=== PATIENT | female | born 1965 | race Caucasian/White ===

== ENCOUNTER 2022-06-28 13:17 | Emergency (ER) | payer OTHER, MEDICAID, SELFPAY ==
[2022-06-28 13:25] VITALS: BP 114/55; PULSE 68; RESP 18; TEMP 36.2; O2SAT 94; BMI 37.2
--- NOTE | 2022-06-28 13:58 | DI.CT.S_ITS ---
PROCEDURE: CT HEAD/BRAIN WO CON INDICATIONS: headache for 2 weeks TECHNIQUE: Noncontrast 4.5 mm thick angled axial sections acquired from the foramen magnum to the vertex, with coronal and sagittal reformats. For radiation dose reduction, the following was used: automated exposure control, adjustment of mA and/or kV according to patient size. COMPARISON: None. FINDINGS: Image quality: Excellent. CSF spaces: Basal cisterns are patent. No extra-axial fluid collections. Ventricles are normal in size and shape. Brain: No midline shift. No intracranial masses or hemorrhage. Lay-white matter interface is normal. Skull and face: Calvarium and visualized facial bones are intact, without suspicious lesions. Sinuses: Visualized sinuses and mastoids are clear. IMPRESSION: 1. No acute intracranial abnormalities. Dictated by: Michelle Johnson M.D. on 06/28/2022 at 14:32 Approved by: Michelle Johnson M.D. on 06/28/2022 at 14:33
--- NOTE | 2022-06-28 13:58 | DI.RAD.S_ITS ---
PROCEDURE: XR CHEST 1V INDICATIONS: Shortness of bretheath TECHNIQUE: One view of the chest was acquired. COMPARISON: None. FINDINGS: Surgical changes and devices: None. Lungs and pleura: Lungs are clear. No pleural effusions or pneumothorax. Mediastinum: Mediastinal contours appear normal. Heart size is normal. Bones and chest wall: No suspicious bony lesions. Overlying soft tissues appear unremarkable. IMPRESSION: No acute cardiopulmonary abnormality. Dictated by: Devin Adams M.D. on 06/28/2022 at 14:41 Approved by: Devin Adams M.D. on 06/28/2022 at 14:42
--- NOTE | 2022-06-28 14:03 | ED.HA ---
HPI - Headache General Chief Complaint: Upper Respiratory Symptoms Stated Complaint: SOB,Headache,Congestion Time Seen by Provider: 06/28/22 13:36 Mode of arrival: Family Vehicle History of Present Illness HPI Narrative: Patient is a 56-year-old female history of type 2 diabetes anxiety presenting today other id of complaints. Says is though she has had some right-sided chest discomfort and shortness of breath for about 6 months. Ms. Today she is presenting with an ongoing headache which is slightly worse than normal. She complains of orthopnea but not necessarily a dyspnea with exertion. She has some mild right-sided discomfort. She denies any nausea or vomiting. She has not traveled anywhere. She does not have any fever or productive cough. Her breathing today is not any worse than normal. She has had slight headache ongoing since June 14. She has taken some Excedrin for it and has not really worked. She feels like the headache is behind her right eye she denies any visual changes no numbness tingling or weakness. She is sensitive to light. She has some mild neck pain but seems to easily be moving her neck. Related Data Home Medications Medication Instructions Recorded Confirmed metformin 500 mg tablet,extended 500 mg PO DAILY 06/28/22 06/28/22 release 24 hr sertraline 50 mg tablet 100 mg PO DAILY 06/28/22 06/28/22 Allergies Allergy/AdvReac Type Severity Reaction Status Date / Time erythromycin base Allergy Verified 06/28/22 13:47 Penicillins Allergy Verified 06/28/22 13:47 Review of Systems Review of Systems Narrative: GENERAL: Denies chills, fatigue, malaise, fever, sweats, travel HEENT: Denies sinus pain, ear pain, sore throat, difficulty swallowing, neck pain RESPIRATORY: See HPI CARDIOVASCULAR: Denies chest pain, palpitations, orthopnea, edema GASTROINTESTINAL: Denies nausea, vomiting, abdominal pain, diarrhea, constipation, melena. : Denies dysuria, frequency, incontinence, hematuria, urinary retention, flank pain. MUSCULOSKELETAL: Denies weakness, joint pain, or bony pain SKIN: No rash, no erythema, no pruritus NEUROLOGIC: + headache PSYCHIATRIC: No concerning psychosocial issues. 12 point review of systems is negative except for those stated above and HPI Patient History Social History Smoking Status: Current every day smoker Smoking Status: Current every day smoker tobacco type: cigarettes and vaping alcohol intake frequency: 0-2 drinks per day Substance Use Type: does not use Exam Initial Vital Signs Initial Vital Signs: Vital Signs Temperature 97.2 F L 06/28/22 13:25 Pulse Rate 68 06/28/22 13:25 Respiratory Rate 18 06/28/22 13:25 Blood Pressure 114/55 L 06/28/22 13:25 Pulse Oximetry 94 06/28/22 13:25 Oxygen Delivery Method 06/28/22 13:25 GENERAL: Alert pleasant 56-year-old female no acute distress yesterday yellow or before HEENT: Head atraumatic,EOMI, pupils reactive, face symmetric, moist mucous membranes, without meningeal CARDIOVASCULAR: Regular rate and rhythm without murmurs, rubs or gallops. RESPIRATORY: Breath sounds equal bilaterally, no wheezes rales or rhonchi. ABDOMEN: Soft, nontender. Normoactive bowel sounds all 4 quadrants. No guarding or rebound. No right upper quadrant pain, negative Doyle EXTREMITIES: Normal range of motion, no clubbing or edema. Neurovascularly intact NEUROLOGICAL: Alert and oriented x4.Normal gait and speech. Cranial nerves II through XII grossly intact. Good [id number], good [id number], strength equal bilaterally, no dysarthria or aphasia, sensation in tact to soft touch bilaterally, no visual changes, no facial droop SKIN: Warm, dry, no laceration, no petechiae, no rashes or lesions. Course Orders Ordered: ED Orders 06/28/22 13:33 COVID19 -Nasal RAPID/Pre-Proc Stat 06/28/22 13:50 Complete Blood Count AUTO DIFF Stat Comprehensive Metabolic Panel Stat D Dimer Stat Lipase Stat NT-proBNP (BNP-Adult 18+) Stat Troponin & CK Cardiac Panel Stat 06/28/22 13:58 CT head/brain wo con Stat XR chest 1V Stat 06/28/22 14:09 EKG-12 Lead Stat 06/28/22 15:33 US abdomen limited Stat Discontinued Medications Ketorolac Tromethamine (Ketorolac 30 Mg/Ml Vial) 15 mg IV NOW ONE Stop: 06/28/22 13:59 Last Admin: 06/28/22 14:40 Dose: 15 mg Documented By: SOLO Vital Signs Vital signs: Vital Signs - 8 hr 06/28/22 13:25 08/12/22 14:38 06/28/22 15:00 Temperature 97.2 F L Pulse Rate 68 63 61 Respiratory Rate 18 Blood Pressure 114/55 L Pulse Oximetry 94 94 92 Oxygen Delivery Method Room Air 06/28/22 15:30 06/28/22 16:00 06/28/22 16:30 Temperature Pulse Rate 63 59 L 58 L Respiratory Rate Blood Pressure Pulse Oximetry 91 92 91 Oxygen Delivery Method MDM - Headache Lab Data Result diagrams: 06/28/22 13:50 06/28/22 13:50 Labs: Lab Results 06/28/22 06/28/22 06/28/22 Range/Units 13:33 13:50 13:50 WBC 7.9 (4.5-11.0) X10^3/uL RBC 5.07 (4.0-5.2) X10^6/uL Hgb 14.8 (12.0-16.0) g/dL Hct 42.1 (36-46) % MCV 83.0 (80-100) fL MCH 29.2 (26-34) PG MCHC 35.1 (30-36) % RDW 13.9 (11.6-14.8) % Plt Count 180 (150-400) X10^3/uL Neut % (Auto) 49.8 L (50-75) % Lymph % (Auto) 34.8 (25-40) % Denali % (Auto) 6.3 (3-14) % Eos % (Auto) 8.2 H (2-4) % Baso % (Auto) 0.9 (0-2) % Neut # (Auto) 3900 (0130-9173) /uL Lymph # (Auto) 2700 (2310-9237) /uL Denali # (Auto) 500 (0-900) /uL Eos # (Auto) 700 H (0-450) /uL Baso # (Auto) 100 (0-100) /uL D-Dimer < 500 (<500) ng/ml Sodium (137-145) mmol/L Potassium (3.4-5.1) mmol/L Chloride (98-107) mmol/L Carbon Dioxide (22-32) mmol/L BUN (7-17) mg/dL Creatinine (0.52-1.04) mg/dL Estimated GFR (>60) mL/min BUN/Creatinine Ratio (6-22) Glucose (70-100) mg/dL Calcium (8.4-10.2) mg/dL Total Bilirubin (0.2-1.3) mg/dL AST (14-36) IU/L ALT (<35) IU/L Alkaline Phosphatase (38-126) U/L Total Creatine Kinase (30-135) U/L CK-MB (CK-2) CK-MB (CK-2) Rel Index Troponin I (0.01-0.034) ng/mL NT-Pro-B Natriuret Pep (<125) pg/mL Total Protein (6.3-8.2) g/dL Albumin (3.5-5.0) g/dL Globulin (1.7-4.1) g/dL Albumin/Globulin Ratio (1.0-2.8) Lipase (23-300) U/L SARS-CoV-2 (PCR) Negative (Negative) 06/28/22 Range/Units 13:50 WBC (4.5-11.0) X10^3/uL RBC (4.0-5.2) X10^6/uL Hgb (12.0-16.0) g/dL Hct (36-46) % MCV (80-100) fL MCH (26-34) PG MCHC (30-36) % RDW (11.6-14.8) % Plt Count (150-400) X10^3/uL Neut % (Auto) (50-75) % Lymph % (Auto) (25-40) % Denali % (Auto) (3-14) % Eos % (Auto) (2-4) % Baso % (Auto) (0-2) % Neut # (Auto) (2710-0415) /uL Lymph # (Auto) (1709-7928) /uL Denali # (Auto) (0-900) /uL Eos # (Auto) (0-450) /uL Baso # (Auto) (0-100) /uL D-Dimer (<500) ng/ml Sodium 140 (137-145) mmol/L Potassium 4.3 (3.4-5.1) mmol/L Chloride 104 (98-107) mmol/L Carbon Dioxide 28 (22-32) mmol/L BUN 9 (7-17) mg/dL Creatinine 0.65 (0.52-1.04) mg/dL Estimated GFR > 60 (>60) mL/min BUN/Creatinine Ratio 13.8 (6-22) Glucose 101 H (70-100) mg/dL Calcium 9.7 (8.4-10.2) mg/dL Total Bilirubin 0.6 (0.2-1.3) mg/dL AST 25 (14-36) IU/L ALT 31 (<35) IU/L Alkaline Phosphatase 75 (38-126) U/L Total Creatine Kinase 42 (30-135) U/L CK-MB (CK-2) TNP CK-MB (CK-2) Rel Index TNP Troponin I < 0.012 (0.01-0.034) ng/mL NT-Pro-B Natriuret Pep 33 (<125) pg/mL Total Protein 7.7 (6.3-8.2) g/dL Albumin 4.6 (3.5-5.0) g/dL Globulin 3.1 (1.7-4.1) g/dL Albumin/Globulin Ratio 1.5 (1.0-2.8) Lipase 970 H (23-300) U/L SARS-CoV-2 (PCR) (Negative) Imaging Data CT scan - head: Radiologist's Impression: ZUHAIR Olivo [id number] CT Scan Report Signed Patient: Laura Rea MR#: [id number] : 1965 Acct:[id number] Age/Sex: 56 / F Date of Service: 06/28/22 Loc: ED Accession Number: [id number] ?? Procedure: CT head/brain wo con Ordering Provider: Liliana Mercado D.O. PROCEDURE:? CT HEAD/BRAIN WO CON ? INDICATIONS:? headache for 2 weeks ? TECHNIQUE:? Noncontrast 4.5 mm thick angled axial sections acquired from the foramen magnum to the vertex, with coronal and sagittal reformats.? For radiation dose reduction, the following was used:? automated exposure control, adjustment of mA and/or kV according to patient size.? ? COMPARISON:? None. ? FINDINGS:? Image quality:? Excellent.? ? CSF spaces:? Basal cisterns are patent.? No extra-axial fluid collections.? Ventricles are normal in size and shape.? ? Brain:? No midline shift.? No intracranial masses or hemorrhage.? Lay-white matter interface is normal.? ? Skull and face:? Calvarium and visualized facial bones are intact, without suspicious lesions.? ? Sinuses:? Visualized sinuses and mastoids are clear.? ? IMPRESSION:? ? 1. No acute intracranial abnormalities. ? ? ? Dictated by: Michelle Johnson M.D. on 06/28/2022 at 14:32 ? ? Chest x-ray: Radiologist's Impression: ZUHAIR Olivo [id number] XRay Report Signed Patient: Laura Rea MR#: [id number] : 1965 Acct:[id number] Age/Sex: 56 / F Date of Service: 06/28/22 Loc: ED Accession Number: [id number] ?? Procedure: XR chest 1V Ordering Provider: Liliana Mercado D.O. PROCEDURE:? XR CHEST 1V ? INDICATIONS:? Shortness of bretheath ? TECHNIQUE:? One view of the chest was acquired.? ? COMPARISON:? None. ? FINDINGS:? ? Surgical changes and devices:? None.? ? Lungs and pleura:? Lungs are clear.? No pleural effusions or pneumothorax.? ? Mediastinum:? Mediastinal contours appear normal.? Heart size is normal.? ? Bones and chest wall:? No suspicious bony lesions.? Overlying soft tissues appear unremarkable.? ? IMPRESSION:? No acute cardiopulmonary abnormality. ? ? ? Dictated by: Devin Adams M.D. on 06/28/2022 at 14:41 ?? US - abdomen: Radiologist's Impression: ZUHAIR Olivo [id number] Ultrasound Report Signed Patient: Laura Rea MR#: [id number] : 1965 Acct:[id number] Age/Sex: 56 / F Date of Service: 06/28/22 Loc: ED Accession Number: [id number] ?? Procedure: US abdomen limited Ordering Provider: Liliana Mercado D.O. PROCEDURE: US ABDOMEN LIMITED ? INDICATIONS:? ruq ? TECHNIQUE:? Real-time focused scanning was performed of the abdomen, with image documentation.? ? COMPARISON:? None. ? FINDINGS:? The liver demonstrates enlarged size. The liver demonstrates generalized moderately increased echogenicity. This decreases ultrasound sensitivity for detection of hepatic masses.? ? Cyst the gallbladder is contracted, which limits its evaluation.? There is an apparent large gallstone (versus multiple gallstones filling the gallbladder lumen) seen within the gallbladder. No findings of gallstones or sludge are seen.? The gallbladder wall is not thickened, measuring 3 mm or less.? No specific pericholecystic fluid is seen.? The sonographic Doyle sign is negative. ? There is no biliary dilatation, the common bile duct measures 5-6 mm.? ? No significant pancreatic abnormality is seen on these images.? IMPRESSION:? A single large gallstone (versus multiple gallstones filling the gallbladder lumen) can be seen, yet without additional sonographic signs of cholecystitis.? Negative for biliary dilatation.? Please correlate with physical examination findings, patient presentation, and laboratory values.? ? The liver demonstrates increased echogenicity.? This finding is nonspecific, yet it is most commonly attributed to fatty infiltration.? Dictated by: León Guerra M.D. on 06/28/2022 at 15:29? ECG Data Interpretation: Low voltage normal sinus rhythm rate 60 PR174 QRS76 [id number] T-wave inversion noted in V2 in V1 no ST elevations no priors to compare MDM Narrative Medical decision making narrative: Patient has had multiple on going his problems. Presenting today with worsening headache. She has no focal deficits. Head CT is negative. She has no meningeal signs. Blood work is overall reassuring. His also had chronic ongoing shortness of breath all worse at night. Both she department complaining wheezing at nighttime. Currently there is no wheezing or respiratory distress. D-dimer is negative BNP is also negative. His chest x-ray does not show any abnormality. Unclear cause of wheezing that is not present at this time and has been ongoing for 6 months. His recommend outpatient follow-up. She has been having some mild right upper quadrant pain and refer right shoulder pain. Ultrasound does show 1 large stone. Normal bilirubin normal LFTs. At this time no sign of acute cholecystitis. I do recommend she have close outpatient follow-up regards to gallstone. She will electively need to have surgery. Discharge Plan Departure Patient Disposition: Home Clinical Impression: Headache, Cholelithiasis Instructions: DI for Gallstones, DI for Headache Activity Restrictions/Additional Instructions: *You have been diagnosed with headache, gallstone *What to do: Your found to have 1 large gallstone. At this time it is likely causing her right upper quadrant pain and shoulder pain. You may require surgery for your gallbladder. Please follow-up with general surgery. There is no explanation for your shortness of breath. However encourage you to follow-up with your PCP. Your lipase is also noted to be slightly elevated likely related to your gallbladder *Continue to take medications as directed *Follow up with your primary care provider in 2-3 days or call [phone] *Return to ER if you should have increasing shortness of breath, increasing pain persistent vomiting or any new, worsening or concerning symptoms Prescriptions: No Action metformin 500 mg tablet extended release 24 hr 500 mg PO DAILY sertraline 50 mg tablet 100 mg PO DAILY Referrals: [facility] [Provider Group] Miscellaneous,Doctor, [Primary Care Provider] - Visit Report Forms: Patient Portal/API
[2022-06-28 14:10] LABS: Add Manual Diff / Slide Review NO; Basophils Absolute Auto 100 /uL (0-100); Basophils Percent Auto 0.9 % (0-2); Eosinophils Absolute Auto 700 /uL (0-450); Eosinophils Percent Auto 8.2 % (2-4); Hematocrit 42.1 % (36-46); Hemoglobin 14.8 g/dL (12.0-16.0); Lymphocytes Absolute Auto 2700 /uL (1100-4500); Lymphocytes Percent Auto 34.8 % (25-40); Mean Corpuscular HGB Conc 35.1 % (30-36); Mean Corpuscular Hemoglobin 29.2 PG (26-34); Monocytes Absolute Auto 500 /uL (0-900); Monocytes Percent Auto 6.3 % (3-14); Neutrophils Absolute Auto 3900 /uL (1500-7000); Neutrophils Percent Auto 49.8 % (50-75); Platelet Count 180 X10^3/uL (150-400); Red Blood Cell Count 5.07 X10^6/uL (4.0-5.2); Red Cell Distribution Width 13.9 % (11.6-14.8); White Blood Cell Count 7.9 X10^3/uL (4.5-11.0)
[2022-06-28 14:17] LABS: D Dimer < 500 ng/ml (<500)
[2022-06-28 14:24] LABS: COVID19 -Nasal RAPID Negative (Negative)
[2022-06-28 14:38] VITALS: PULSE 63; O2SAT 94
[2022-06-28] MEDS: KETOROLAC 30 MG/ML VIAL 15 MG IV (14:40)
[2022-06-28 15:00] VITALS: PULSE 61; O2SAT 92
[2022-06-28 15:21] LABS: Alanine Aminotransferase 31 IU/L (<35); Albumin 4.6 g/dL (3.5-5.0); Albumin Globulin Ratio 1.5 (1.0-2.8); Alkaline Phosphatase 75 U/L (38-126); Aspartate Aminotransferase 25 IU/L (14-36); BUN Creatinine Ratio 13.8 (6-22); Bilirubin Total 0.6 mg/dL (0.2-1.3); Blood Urea Nitrogen 9 mg/dL (7-17); Calcium 9.7 mg/dL (8.4-10.2); Carbon Dioxide 28 mmol/L (22-32); Chloride 104 mmol/L (98-107); Creatine Kinase 42 U/L (30-135); Estimated Glomerular Filt Rate > 60 mL/min (>60); Globulin 3.1 g/dL (1.7-4.1); Glucose 101 mg/dL (70-100); HEMOLYSIS < 15 (0-50); Lipase 970 U/L (23-300); Potassium 4.3 mmol/L (3.4-5.1); Sodium 140 mmol/L (137-145); Total Protein 7.7 g/dL (6.3-8.2)
[2022-06-28 15:30] VITALS: PULSE 63; O2SAT 91
[2022-06-28 15:33] LABS: NT-proBNP (BNP-Adult 18+) 33 pg/mL (<125); Troponin I < 0.012 ng/mL (0.01-0.034)
--- NOTE | 2022-06-28 15:33 | DI.US.S_ITS ---
PROCEDURE: US ABDOMEN LIMITED INDICATIONS: ruq TECHNIQUE: Real-time focused scanning was performed of the abdomen, with image documentation. COMPARISON: None. FINDINGS: The liver demonstrates enlarged size. The liver demonstrates generalized moderately increased echogenicity. This decreases ultrasound sensitivity for detection of hepatic masses. Cyst the gallbladder is contracted, which limits its evaluation. There is an apparent large gallstone (versus multiple gallstones filling the gallbladder lumen) seen within the gallbladder. No findings of gallstones or sludge are seen. The gallbladder wall is not thickened, measuring 3 mm or less. No specific pericholecystic fluid is seen. The sonographic Doyle sign is negative. There is no biliary dilatation, the common bile duct measures 5-6 mm. No significant pancreatic abnormality is seen on these images. IMPRESSION: A single large gallstone (versus multiple gallstones filling the gallbladder lumen) can be seen, yet without additional sonographic signs of cholecystitis. Negative for biliary dilatation. Please correlate with physical examination findings, patient presentation, and laboratory values. The liver demonstrates increased echogenicity. This finding is nonspecific, yet it is most commonly attributed to fatty infiltration. Dictated by: León Guerra M.D. on 06/28/2022 at 15:29 Approved by: León Guerra M.D. on 06/28/2022 at 15:30
[2022-06-28 16:00] VITALS: PULSE 59; O2SAT 92
[2022-06-28 16:30] VITALS: PULSE 58; O2SAT 91
== END 2022-06-28 17:05 | disposition home or self-care (01) ==
PROVIDERS: Emergency Provider Emergency Medicine
DX: R51.9 Headache, unspecified (principal); K80.20 Calculus of gallbladder without cholecystitis without obstruction; R10.11 Right upper quadrant pain; R06.02 Shortness of breath; Z20.822 Contact with and (suspected) exposure to COVID-19
CPT/HCPCS: 36415; 70450; 71045; 76705; 80053; 82550; 83690; 83880; 84484; 85025; 85379; 87635; 93005; 93010; 96374; 99284; C9803; J1885

== ENCOUNTER → 2024-07-01 11:05 | Outpatient (CLI) | payer OTHER, SELFPAY ==
--- NOTE | 2024-07-01 11:07 | DI.CT.S_ITS ---
PROCEDURE: CT ABDOMEN PELVIS W CON INDICATIONS: ABDOMINAL PAIN TECHNIQUE: After the administration of intravenous contrast, axial sections acquired from the lung bases to the pubic symphysis. Coronal and sagittal reformats were performed. For radiation dose reduction, the following was used: automated exposure control, adjustment of mA and/or kV according to patient size. COMPARISON: None. FINDINGS: Image quality: Diagnostic. Lower Chest: No significant findings. ABDOMEN: Liver: No solid mass. There is hepatic steatosis. Gallbladder: There is a 2.5 x 1.3 cm gallstone within the gallbladder that fills up the entirety of the gallbladder. Biliary ducts: There is a stone within the common bile duct that measures approximately 0.5 cm. Pancreas: No ductal dilation. Spleen: Mild splenomegaly. Adrenal Glands: No adrenal nodules. Kidneys and Ureters: No hydronephrosis. No solid mass. No complex renal cystic lesion which requires follow up. Stomach and Bowel: No small bowel obstruction. Small hiatal hernia. The ascending colon is mildly dilated (4 cm) relative to the transverse colon and descending colon. Peritoneum: No abnormal intraperitoneal fluid. No free air. Ventral Wall: There is a 3.2 cm ventral hernia just right of midline that contains the proximal transverse colon. Abdominal Nodes: No retroperitoneal or mesenteric adenopathy by size criteria. Vessels: Aorta and inferior vena cava are normal in size. PELVIS: Pelvic Organs: The uterus is present. There are 2 sub 2 cm cystic foci within the right adnexal region. Bladder: No bladder wall thickening, accounting for underdistention. Pelvic Nodes: No enlarged lymph nodes. Miscellaneous: No inguinal hernias are seen. Bones: No destructive osseous pathology. IMPRESSION: 1. Within the upper abdomen, right of midline, there is a 4 cm ventral hernia that contains the proximal transverse colon. There is mild dilation of the ascending colon in relation to the transverse colon and descending colon. This may suggest a partial obstruction. 2. There is a large gallstone that occupies the entirety of the gallbladder. Additionally, there is a 0.5 cm stone within the common bile duct. An ERCP or HIDA scan can be performed to assess for obstruction. 3. There is hepatic steatosis. 4. Nonspecific mild splenomegaly. 5. There are 2 sub 2 cm foci within the right adnexa which are felt to correspond to ovarian cysts. If there is clinical concern for pelvic pathology, an ultrasound can be obtained for further characterization. Dictated by: Walter Christopher M.D. on 07/02/2024 at 15:31 Approved by: Walter Christopher M.D. on 07/02/2024 at 16:07
== END ==
LOC: CT 11:06
DX: K80.70 Calculus of gallbladder and bile duct without cholecystitis without obstruction (principal); R10.9 Unspecified abdominal pain; K76.0 Fatty (change of) liver, not elsewhere classified; R16.1 Splenomegaly, not elsewhere classified; K44.9 Diaphragmatic hernia without obstruction or gangrene; K43.9 Ventral hernia without obstruction or gangrene; Z85.068 Personal history of other malignant neoplasm of small intestine
CPT/HCPCS: 74177; Q9967

== ENCOUNTER 2024-08-18 11:57 | Day surgery (SDC) | payer OTHER, SELFPAY ==
[2024-08-13 07:23] VITALS: BMI 41.1
--- NOTE | 2024-08-18 | PATH_ITS ---
[facility] Accession Number: [id number] No. of containers..01 Tissue . 01 Material submitted: . gallbladder - GALLBLADDER . 01 Diagnosis: GALLBLADDER, CHOLECYSTECTOMY: Chronic cholecystitis and cholelithiasis. One benign lymph node identified. [facility] 08/23/2024 1154 Local . 01 Electronically signed: . Giulia Neal MD, Pathologist NPI- [id number] . 01 Gross description: . Received in formalin with two patient identifiers and gallbladder, is an intact gallbladder, 7.4 x 2.4 x 2.2 cm, with an unremarkable external surface. The cystic duct margin is inked blue, and a mccauley lymph node candidate is 0.7 cm in greatest dimension. The lumen is filled with numerous, dark green to brown, roughened calculi measuring up to 0.3 cm in greatest dimension grossly obstructing the cystic duct and admixed with brown, gelatinous bile. The mucosa is green and velvety with no yellow areas of discoloration, polyps, or lesions identified. The eagle average 0.2 cm thick, and artists' booking representative sections to include the cystic duct margin and full thickness sections and intact lymph node candidate submitted in A1. ([id number]) /MRV 08/20/2024 1434 Local . 01 Pathologist provided ICD-10: K80.10, K81.1, K80.20 . 01 CPT . 556455 Specimen Comment: A courtesy copy of this report has been sent to [phone] Performed at: [address] [address], [place], [place] [id number] MD Manuel Terrell MD Phone: [phone]
[2024-08-18 12:22] VITALS: BMI 40.4
--- NOTE | 2024-08-18 12:24 | PM.PREOP ---
Pre-operative Note Interval Note History & Physical reviewed/Exam performed by Physician: Yes Changes to H&P: No
[2024-08-18 12:29] VITALS: BP 124/70; PULSE 89; RESP 18; TEMP 36.2; O2SAT 95
[2024-08-18] MEDS: ACETAMINOPHEN 325 MG TABLET 975 MG PO (12:32)
[2024-08-18] MEDS: FAMOTIDINE 20 MG/2 ML VIAL IV (12:32)
[2024-08-18] MEDS: LACTATED RINGERS 1,000 ML 42 ML IV (12:38)
[2024-08-18] MEDS: CLINDAMYCIN 900 MG/50 ML PIGGYBACK 50 MG IV (13:00)
--- NOTE | 2024-08-18 13:07 | SUR.OPER ---
Addendum entered by Jerome Gold R.N. 08/18/24 13:19: right arm secured on padded arm board abucted less than 90 degrees Original Note: Supine on padded OR bed, head on pillow, right arm secured on padded arm board less than 90 degrees, left arm padded and tucked at left side, legs uncrossed, safety belt at thigh, blanket over lower legs .
[2024-08-18] MEDS: BUPIVACAINE 0.25% (PF) VIAL 30 ML INJ (13:09)
[2024-08-18 14:23] VITALS: BP 114/45; PULSE 87; RESP 15; TEMP 36.4; O2SAT 95
[2024-08-18 14:30] VITALS: BP 120/68; PULSE 84; RESP 12; TEMP 36.4; O2SAT 98
[2024-08-18 14:35] VITALS: BP 114/69; PULSE 86; RESP 20; TEMP 36.3; O2SAT 97
[2024-08-18 14:40] VITALS: BP 119/62; PULSE 77; RESP 15; TEMP 36.3; O2SAT 97
[2024-08-18] MEDS: KETOROLAC 30 MG/ML VIAL 15 MG IV (14:50)
[2024-08-18] MEDS: OXYCODONE IR 5 MG TABLET PO (14:51)
[2024-08-18] MEDS: hydrOXYzine HCL 25 MG TABLET PO (15:12)
[2024-08-18] MEDS: ONDANSETRON 4 MG/2 ML INJ IV (15:12)
--- NOTE | 2024-08-18 15:14 | P.OP_ITS ---
Operative Date/Time/Diagnoses Date of procedure: 08/18/24 Time of procedure: 15:14 Pre-op diagnosis: Biliary colic Post-op diagnosis: same Procedure & Clinicians Procedure: Laparoscopic cholecystectomy Same procedure as scheduled: Yes Indications: Symptoms and radiographic findings consistent with biliary colic Surgeon: Chris Crockett Channeling Machine Operator: Arian Berg Anesthesia Type: General Operative Notes Findings: Dense intra-abdominal adhesions along the right pericolic gutter from history of a right hemicolectomy for appendiceal carcinoma. Critical view of safety established. Oozing from the gallbladder fossa controlled with cautery and Surgicel. Specimen(s): other (Gallbladder) Estimated Blood Loss (mL): 20 Procedure in detail: The patient was placed supine on the table and bilateral lower extremity compression devices were applied. Anesthesia was induced they were intubated with an endotracheal tube and received 2g of Ancef. A time-out was performed. They were prepped and draped in sterile fashion. An infraumbilical incision was made. The fascia was elevated incised and the abdomen was entered atraumatically. A blunt tip 12mm balloon trocar was then inserted, pneumoperitoneum was established and inspection of the abdomen demonstrated no evidence of injury. Additional 5 mm working ports were placed in the right upper quadrant. There were dense intra-abdominal adhesions involving the right pericolic gutter. The adhesions near the hepatic flexure were taken down using sharp dissection. They were placed head up and right side up and then a 11 mm port was placed high in the epigastrium and two 5mm in the right upper quadrant. The gallbladder was grasped by the fundus and retracted over the liver and retracted laterally by the infundibulum. Using electrocautery the lateral plane between the gallbladder and the liver was opened towards the fundus. The gallbladder was then retracted laterally and the medial plane was developed in the same manner. With the gallbladder mobilized the bottom of the cystic plate was visualized. The hepatocystic triangle was meticulosly skeletonized with blunt dissection of fat and fibrous tissue from both the front and the back. The cystic artery, a posterior branch of the cystic artery and the cystic duct were seen entering the gallbladder With the critical view of safety fully established the cystic duct was clipped twice proximally and once distally using the 10 mm Weck hemoclip applied under direct visualization and then sharply divided. The cystic artery and its posterior branch was divided in the same fashion. The gallbladder was removed from the liver bed using electro cautery. The liver bed was then inspected for hemostasis. There was this area within the gallbladder fossa that was persistently oozing. Hemostasis was achieved using electrocautery and Surgicel. The abdomen was irrigated with sterile saline and inspection was made that showed the clips in good position. The specimen was removed using Endo-Catch. The abdomen was desufflated. The umbilical fascia was closed with 0 Vicryl in a [id number] fashion under direct visualization. Skin incisions were irrigated and closed with 4-0 Monocryl. 30 ml of 0.25% bupivacaine was infiltrated into the subcutaneous tissue of the incisions. The wounds were sealed with Dermabond. Patient emerged from anesthesia was extubated and transferred to recovery in stable condition. The sponge and instrument count at the end of the operation was correct. Complications: none Post-operative Condition: stable Disposition: same day surgery
[2024-08-18 15:35] VITALS: BP 137/77; PULSE 75; RESP 18; TEMP 36.2; O2SAT 94
[2024-08-18] MEDS: ONDANSETRON 4 MG ODT SL (16:13)
== END 2024-08-18 16:20 | disposition home or self-care (01) ==
PROVIDERS: PCP Internal Medicine; Referring Provider Surgery; Visit Provider Surgery
PROC: 0FT44ZZ Resection of Gallbladder, Percutaneous Endoscopic Approach (ICD-10-PCS; CPT 47562; principal; 2024-08-18 13:15)
DX: K80.10 Calculus of gallbladder with chronic cholecystitis without obstruction (principal); K66.0 Peritoneal adhesions (postprocedural) (postinfection)
CPT/HCPCS: 47562; A9270; J1100; J1885; J2250; J2405; J2704; J3010; J3490

== ENCOUNTER → 2024-09-10 09:47 | Outpatient (CLI) | payer OTHER, SELFPAY ==
[2024-09-10 12:07] LABS: Alanine Aminotransferase 74 IU/L (<35); Albumin 4.3 g/dL (3.5-5.0); Albumin Globulin Ratio 1.8 (1.0-2.8); Alkaline Phosphatase 114 U/L (38-126); Aspartate Aminotransferase 53 IU/L (14-36); BUN Creatinine Ratio 14.5 (6-22); Bilirubin Total 0.6 mg/dL (0.2-1.3); Blood Urea Nitrogen 9 mg/dL (7-17); Calcium 9.3 mg/dL (8.4-10.2); Carbon Dioxide 25 mmol/L (22-32); Chloride 105 mmol/L (98-107); Estimated Glomerular Filt Rate > 60 mL/min (>60); Globulin 2.4 g/dL (1.7-4.1); Glucose 213 mg/dL (70-100); HEMOLYSIS < 15 (0-50); Potassium 4.2 mmol/L (3.4-5.1); Sodium 137 mmol/L (137-145); Total Protein 6.7 g/dL (6.3-8.2)
== END ==
PROVIDERS: PCP Internal Medicine; Referring Provider Surgery; Visit Provider Surgery
DX: R74.01 Elevation of levels of liver transaminase levels (principal)
CPT/HCPCS: 36415; 80053

== ENCOUNTER → 2025-02-11 16:47 | Outpatient (CLI) | payer OTHER, SELFPAY ==
[2025-02-11 17:40] LABS: Hemoglobin A1C% w Est Avg Glu 5.3 % (4.0-6.0)
[2025-02-11 17:54] LABS: Alanine Aminotransferase 61 IU/L (<35); Albumin 4.7 g/dL (3.5-5.0); Alkaline Phosphatase 76 U/L (38-126); Aspartate Aminotransferase 44 IU/L (14-36); BUN Creatinine Ratio 12.9 (6-22); Bilirubin Total 0.9 mg/dL (0.2-1.3); Blood Urea Nitrogen 9 mg/dL (7-17); Calcium 10.2 mg/dL (8.4-10.2); Carbon Dioxide 25 mmol/L (22-32); Chloride 104 mmol/L (98-107); Estimated Glomerular Filt Rate > 60 mL/min (>60); Globulin 2.4 g/dL (1.7-4.1); Glucose 124 mg/dL (70-100); HEMOLYSIS < 15 (0-50); Potassium 4.1 mmol/L (3.4-5.1); Sodium 139 mmol/L (137-145); Total Protein 7.1 g/dL (6.3-8.2)
== END ==
LOC: LAB 16:48
PROVIDERS: PCP Internal Medicine; Referring Provider Internal Medicine; Visit Provider Internal Medicine
DX: E11.9 Type 2 diabetes mellitus without complications (principal)
CPT/HCPCS: 36415; 80053; 83036

== ENCOUNTER → 2025-06-29 16:29 | Outpatient (CLI) | payer OTHER, SELFPAY ==
[2025-06-29 18:13] LABS: Hemoglobin A1C% w Est Avg Glu 6.2 % (4.0-6.0)
[2025-06-29 18:33] LABS: Alanine Aminotransferase 65 IU/L (<35); Albumin 4.8 g/dL (3.5-5.0); Albumin Globulin Ratio 2.1 (1.0-2.8); Alkaline Phosphatase 74 U/L (38-126); Blood Urea Nitrogen 7 mg/dL (7-17); Calcium 9.5 mg/dL (8.4-10.2); Carbon Dioxide 25 mmol/L (22-32); Chloride 103 mmol/L (98-107); Estimated Glomerular Filt Rate > 60 mL/min (>60); Globulin 2.3 g/dL (1.7-4.1); Glucose 103 mg/dL (70-99); HEMOLYSIS < 15 (0-50); Potassium 4.1 mmol/L (3.4-5.1); Sodium 138 mmol/L (137-145); Total Protein 7.1 g/dL (6.3-8.2)
== END ==
PROVIDERS: PCP Internal Medicine; Referring Provider Internal Medicine; Visit Provider Internal Medicine
DX: E11.9 Type 2 diabetes mellitus without complications (principal)
CPT/HCPCS: 36415; 80053; 83036